=== PATIENT | male | born 2005 | race Caucasian/White ===

== ENCOUNTER 2024-01-28 12:49 | Emergency (ER) | payer MEDICAID ==
[2024-01-28 13:19] VITALS: BP 144/82; PULSE 71; TEMP 98.4; O2SAT 98
--- NOTE | 2024-01-28 13:50 | ERPHSYRPT ---
- History of Present Illness Time Seen by Provider: 01/28/24 13:25 Source: patient Exam Limitations: no limitations Patient Subjective Stated Complaint: Pt states that he was sleeping on his belly and when he woke up he got up to go urinate and he had extreme pain in his left testicle Triage Nursing Assessment: Pt was brought to the ER by his mother, hypertensive, rates pain as 7/10 in his left testicle, can spread legs and lay a certain way and he is able to relax, left testicle is swollen and very painful with palpatation, denies ever having any problems, denies problems with urination issues Physician History: Patient is a 18-year-old white male who presents with a complaint of severe pain in the left testicle. He was sleeping he got up to urinate he developed severe pain in the left testicle of sudden onset. After urinating he went back to bed and was able to get comfortable enough to fall asleep but when he awoke from his second nap he was in severe pain with swelling and tenderness of the left test icle. Timing/Duration: today Activites at Onset: sleep Quality: throbbing Onset Location: groin, left testicle Severity of Pain-Max: severe Severity of Pain-Current: severe Modifying Factors: Improves With: movement, palpation Associated Symptoms: denies symptoms Prior abdominal problems: none Sexual intercourse history: non-contributory Allergies/Adverse Reactions: amoxicillin Allergy (Verified 01/28/24 13:18) Home Medications: No Home Meds [No Home Meds] 1 ea UD 08/22/15 [History] Hx Tetanus, Diphtheria Vaccination/Date Given: Yes Hx Influenza Vaccination/Date Given: No Hx Pneumococcal Vaccination/Date Given: No Travel Risk - International Travel Have you traveled outside of the country in past 3 weeks: No - Emerging Infectious Disease Are you exhibiting symptoms associated with any current EIDs: No - Past Medical History Pertinent Past Medical History: No Neurological History: No Pertinent History ENT History: No Pertinent History Cardiac History: No Pertinent History Respiratory History: No Pertinent History Endocrine Medical History: No Pertinent History Musculoskeletal History: No Pertinent History GI Medical History: No Pertinent History History: No Pertinent History Psycho-Social History: No Pertinent History Male Reproductive Disorders: No Pertinent History - Past Surgical History Past Surgical History: Yes Neuro Surgical History: No Pertinent History Cardiac: No Pertinent History Respiratory: No Pertinent History Gastrointestinal: No Pertinent History Genitourinary: No Pertinent History Musculoskeletal: Other Male Surgical History: No Pertinent History Other Surgical History: closed reduction of right tibia - Social History Smoking Status: Current some day smoker Exposure to second hand smoke: Yes Drug Use: marijuana Patient Lives Alone: No (school student) - Review of Systems Constitutional: No Fever, No Chills Eyes: No Symptoms Ears, Nose, & Throat: No Symptoms Respiratory: No Cough, No Dyspnea Cardiac: No Chest Pain, No Edema, No Syncope Abdominal/Gastrointestinal: No Abdominal Pain, No Nausea, No Vomiting, No Diarrhea Genitourinary Symptoms: Testicle Pain, No Dysuria Musculoskeletal: No Back Pain, No Neck Pain Skin: No Rash Neurological: No Dizziness, No Focal Weakness, No Sensory Changes Psychological: No Symptoms Endocrine: No Symptoms All Other Systems: Reviewed and Negative - Nursing Vital Signs Nursing Vital Signs: Initial Vital Signs Temperature 98.4 F 01/28/24 13:11 Pulse Rate 71 01/28/24 13:11 Blood Pressure 144/82 01/28/24 13:11 O2 Sat by Pulse Oximetry 98 01/28/24 13:11 Pain Scale Pain Intensity 7 - Physical Exam General Appearance: moderate distress, alert Eye Exam: PERRL/EOMI Ears, Nose, Throat Exam: pharynx normal, moist mucous membranes Neck Exam: normal inspection, supple Respiratory Exam: normal breath sounds, lungs clear Cardiovascular Exam: regular rate/rhythm, No edema Gastrointestinal/Abdomen Exam: soft, tenderness (Tenderness swelling and induration) Rectal Exam: not done Male Genital Exam: normal genitalia Back Exam: normal inspection, No CVA tenderness Extremity Exam: normal inspection, normal range of motion, No pedal edema Neurologic Exam: alert, oriented x 3, cooperative, sensation nml, No motor deficits Skin Exam: normal color, warm, dry, No rash SpO2: 98 - Radiology Ultrasound Exam Left Scrotal Ultrasound: Other (Epididymitis reported by ultrasound) Ordered Tests: Active Orders 24 hr Category Date Time Status TESTICLE [US] Stat Exams 01/28/24 13:24 Ordered - Progress Progress: unchanged Medical Desision Making - Independent Historian Additional History obtained from: Mother - Diagnostic Testing Diagnostic test were ordered, analyzed, and reviewed by me: Yes Radiological Interpretation: Reviewed by me - Risk of complications Low Risk: Low risk of morbidity from additional dx testing or treatment - Departure Departure Disposition: Home Clinical Impression: Epididymitis Condition: Stable Critical Care Time: No Instructions: Epididymitis (DC) Prescriptions: Doxycycline Hyclate 100 mg [Vibramycin 100 MG] 100 mg PO BID 14 Days #28 tab
--- NOTE | 2024-01-28 14:06 | XRAY ---
Indication: Left-sided pain and swelling. Two-dimensional testicular sonogram performed. Comparison: None Both testicles are homogeneous echogenicity with normal color perfusion. Right testicle measures 5.2 x 2.4 x 3.2 cm and left measures 4.7 x 3.0 x 3.8 cm. Prominent left epididymis with hyperemic color flow favoring epididymitis. Small left hydrocele presumed reactive. Right epididymis demonstrates 5 mm cyst. No suspicious extratesticular mass. Impression: 1. Sonographic features favoring left epididymitis with small reactive hydrocele. 2. Incidental tiny right epididymal cyst. 3. Remaining testicular sonogram is negative.
[2024-01-28] MEDS ORDERED: Rocephin 1000 MG INJ ONE (14:10)
[2024-01-28] MEDS ORDERED: XYLOCAINE 1% HCL 20 ML MDV ONE (14:11)
[2024-01-28] MEDS: Rocephin 1000 MG INJ IM ONE (14:13)
[2024-01-28] MEDS: XYLOCAINE 1% HCL 20 ML MDV IJ ONE (14:13)
[2024-01-28] MEDS ORDERED: NORCO 5/325 MG ONE (14:26)
[2024-01-28] MEDS: NORCO 5/325 MG PO PRN (14:28)
[2024-01-28] MEDS: TORAdol 30 mg Injection IM ONE (14:28)
== END 2024-01-28 14:47 | disposition home or self-care (01) ==
LOC: ED 12:49
DX: N45.1 Epididymitis (principal); N50.812 Left testicular pain; Z72.0 Tobacco use
CPT/HCPCS: 76870; 96372; 99283; J0696; A9270-GY